=== PATIENT | female | born 1965 | race Caucasian/White ===

== ENCOUNTER → 2017-02-02 | Outpatient (CLI) | payer BC, OTHER ==
[~2017-02-02] MED LIST: ACET50TA PO; AMAN10CA PO; SERT50TA PO; TRAM150C5 PO; TRAM50TA2 PO
[2017-02-02 10:32] LABS: FREE T4 1.12 NG/DL (0.76-1.46)
[2017-02-02 10:40] LABS: CORTISOL AM 7.6 UG/DL (4.3-22.4); LUTEINIZING HORMONE 14.2 mIU/mL; PROLACTIN 5.7 NG/ML
[2017-02-02 10:41] LABS: FOLLICLE STIMULATING HORMONE 38.3 mIU/mL
== END ==
LOC: M WUC 08:36
DX: S06.2X9S Diffuse traumatic brain injury with loss of consciousness of unspecified duration, sequela (principal); X58.XXXS Exposure to other specified factors, sequela; Y92.89 Other specified places as the place of occurrence of the external cause; Y93.89 Activity, other specified; Y99.8 Other external cause status

== ENCOUNTER 2018-05-02 10:58 | Outpatient (RCR) | payer MEDICARE, OTHER | END 2018-05-26 | LOC: M ST 10:58 | DX: Z51.89 Encounter for other specified aftercare (principal); R26.9 Unspecified abnormalities of gait and mobility; R41.89 Other symptoms and signs involving cognitive functions and awareness | CPT/HCPCS: 97110 ==

== ENCOUNTER 2019-12-02 12:44 | Emergency (ER) | payer MEDICARE, OTHER ==
[~2019-12-02] VITALS: Ht 157.5 cm; Wt 93.6 kg
[~2019-12-02 12:44] MED LIST changes: -ACET50TA PO; +AMAN100C20 PO; -AMAN10CA PO; +MAPA500T2 PO; +SERT-141 PO; -SERT50TA PO
[2019-12-02] MEDS ORDERED: NS 1,000 ML IV ONE (13:30)
--- NOTE | 2019-12-02 14:01 | REP ---
Portable chest x-ray: Single view. History: Altered mental status. No comparison chest x-ray. Findings: The lungs are well inflated and clear. The pleural angles are sharp. Heart size is normal. EKG electrodes are seen. Pulmonary vasculature is not increased. No significant bony abnormality is appreciated. Impression: No active disease. Electronically Signed by Medhat Smalls MD 12/02/2019 01:52 P
--- NOTE | 2019-12-02 14:13 | REP ---
CT BRAIN WITHOUT CONTRAST: HISTORY: Headache. No comparison study. CT FINDINGS: Digital preliminary store sales leader radiograph is unremarkable. The bony calvarium is intact. Lateral, third, and fourth ventricles are normal in position and configuration. There is minimal generalized atrophic change. There is no evidence of intracranial hemorrhage. No mass, infarct, extra-axial fluid collection, or midline shift is seen. No intraorbital abnormality is seen. The visualized paranasal sinuses are clear. IMPRESSION: No acute intracranial abnormality. Electronically Signed by Medhat Smalls MD 12/02/2019 02:56 P
[2019-12-02 14:52] LABS: BASO # 0.1 10^3/uL (0.0-0.2); EOS # 0.1 10^3/uL (0.0-0.5); EOS % 1.2 % (0.0-3.0); HEMATOCRIT 40.4 % (36.0-47.0); HEMOGLOBIN 13.3 g/dl (12.0-15.5); LYMPH # 1.8 10^3/uL (1.5-5.0); LYMPH % 25.7 % (24.0-44.0); MEAN CORPUSCULAR HEMOGLOBIN 31.2 pg (27.0-33.0); MEAN CORPUSCULAR HGB CONC 32.9 g/dl (32.0-36.5); MEAN CORPUSCULAR VOLUME 94.8 fl (80.0-96.0); MONO # 0.5 10^3/uL (0.0-0.8); MONO % 7.7 % (0.0-5.0); NEUTROPHILS # 4.4 10^3/uL (1.5-8.5); NEUTROPHILS % 64.1 % (36.0-66.0); PLATELET COUNT, AUTOMATED 220 10^3/uL (150-450); RED BLOOD COUNT 4.26 10^6/uL (4.00-5.40); WHITE BLOOD COUNT 6.9 10^3/uL (4.0-10.0)
[2019-12-02] MEDS ORDERED: KETOROLAC 30 MG/ML VIAL (J1885) IV ONE (15:00)
[2019-12-02] MEDS ORDERED: METOCLOPRAMIDE INJ 10MG/2ML VIAL (J2765) IV ONE (15:00)
[2019-12-02 15:29] LABS: ALBUMIN 3.6 GM/DL (3.2-5.2); ALT/SGPT 13 U/L (12-78); BILIRUBIN,DIRECT < 0.1 MG/DL (0.0-0.2); BILIRUBIN,TOTAL 0.2 MG/DL (0.2-1.0); BLOOD UREA NITROGEN 18 MG/DL (7-18); CALCIUM LEVEL 9.2 MG/DL (8.5-10.1); CARBON DIOXIDE LEVEL 28 MEQ/L (21-32); CHLORIDE LEVEL 107 MEQ/L (98-107); CK-MB VALUE MASS 2.8 NG/ML (<3.6); CPK CREATINE PHOSPHOKINASE 112 U/L (26-192); CREATININE FOR GFR 0.67 MG/DL (0.55-1.30); GLOMERULAR FILTRATION RATE > 60.0 (>51); GLUCOSE, FASTING 85 MG/DL (70-100); POTASSIUM SERUM 4.3 MEQ/L (3.5-5.1); SODIUM LEVEL 141 MEQ/L (136-145); THYROID STIMULATING HORMONE 0.631 uIU/ML (0.358-3.740); TOTAL PROTEIN 7.1 GM/DL (6.4-8.2); TROPONIN I < 0.02 NG/ML (< 0.10)
[2019-12-02 16:15] VITALS: BP 140/71
== END 2019-12-02 16:30 | disposition home or self-care (01) ==
LOC: M ED 12:44
DX: G44.209 Tension-type headache, unspecified, not intractable (principal); Z87.820 Personal history of traumatic brain injury; F17.210 Nicotine dependence, cigarettes, uncomplicated; Z79.899 Other long term (current) drug therapy; Z79.891 Long term (current) use of opiate analgesic
CPT/HCPCS: 36415; 70450; 71045; 80048; 80076; 81001; 82550; 82553; 84443; 84484; 85025; 87086; 96361; 96374; 96375; 99284; J1885; J2765

== ENCOUNTER → 2022-01-10 | Outpatient (CLI) | payer MEDICARE, OTHER ==
[2022-01-10 10:13] LABS: HEMOGLOBIN 14.5 g/dl (12.0-15.5); MEAN CORPUSCULAR HEMOGLOBIN 30.7 pg (27.0-33.0); MEAN CORPUSCULAR HGB CONC 32.2 g/dl (32.0-36.5); MEAN CORPUSCULAR VOLUME 95.1 fl (80.0-96.0); PLATELET COUNT, AUTOMATED 237 10^3/uL (150-450); RED BLOOD COUNT 4.73 10^6/uL (4.00-5.40); WHITE BLOOD COUNT 5.9 10^3/uL (4.0-10.0)
[2022-01-10 10:44] LABS: ALBUMIN 3.7 GM/DL (3.2-5.2); ALT/SGPT 16 U/L (12-78); BILIRUBIN,TOTAL 0.2 MG/DL (0.2-1.0); BLOOD UREA NITROGEN 18 MG/DL (7-18); CALCIUM LEVEL 9.5 MG/DL (8.5-10.1); CARBON DIOXIDE LEVEL 27 MEQ/L (21-32); CHLORIDE LEVEL 107 MEQ/L (98-107); CREATININE FOR GFR 0.66 MG/DL (0.55-1.30); GLOMERULAR FILTRATION RATE > 60.0 (>51); GLUCOSE, FASTING 85 MG/DL (70-100); POTASSIUM SERUM 4.4 MEQ/L (3.5-5.1); SODIUM LEVEL 138 MEQ/L (136-145); TOTAL PROTEIN 8.1 GM/DL (6.4-8.2)
== END ==
LOC: M LAB 09:38
PROVIDERS: ATTEND Physical Medicine & Rehabilitation
DX: R41.89 Other symptoms and signs involving cognitive functions and awareness (principal); R46.89 Other symptoms and signs involving appearance and behavior

== ENCOUNTER → 2022-12-22 | Outpatient (CLI) | payer MEDICARE, OTHER | LOC: M RAD 06:54 | PROVIDERS: ATTEND Family Medicine | DX: F17.210 Nicotine dependence, cigarettes, uncomplicated (principal) ==

== ENCOUNTER → 2023-12-25 | Outpatient (CLI) | payer MEDICARE, OTHER | LOC: M RAD 08:17 | PROVIDERS: ATTEND Family Medicine | DX: Z12.2 Encounter for screening for malignant neoplasm of respiratory organs (principal); F17.210 Nicotine dependence, cigarettes, uncomplicated ==

== ENCOUNTER 2024-05-04 09:41 | Emergency (ER) | payer MEDICARE, OTHER ==
[~2024-05-04] VITALS: Ht 177.8 cm; Wt 98.5 kg
[2024-05-04 09:42] VITALS: BP 109/77; TEMP 97.4; O2SAT 96
[2024-05-04] MEDS ORDERED: PAME25CA PO (09:50)
[2024-05-04] MEDS ORDERED: [UNRECOGNIZED DRUG - CODE] PO (09:50)
== END 2024-05-04 12:05 | disposition home or self-care (01) ==
LOC: M ED 09:41
DX: I73.1 Thromboangiitis obliterans [Buerger's disease] (principal); F17.210 Nicotine dependence, cigarettes, uncomplicated; Z79.1 Long term (current) use of non-steroidal anti-inflammatories (NSAID); Z79.899 Other long term (current) drug therapy

== ENCOUNTER → 2024-09-17 | Outpatient (CLI) | payer MEDICARE, OTHER ==
[~2024-09-17] MED LIST changes: +ISOVUE-370 76% 100ML VIAL As Ordered ONE; +PAME25CA PO; +[UNRECOGNIZED DRUG - CODE] PO
== END ==
LOC: M RAD 10:36
PROVIDERS: ATTEND Surgery Vascular Surgery
DX: I77.1 Stricture of artery (principal)
CPT/HCPCS: 71275; Q9967

== ENCOUNTER → 2024-10-28 | Outpatient (CLI) | payer MEDICARE, OTHER ==
[~2024-10-28] MED LIST changes: -ISOVUE-370 76% 100ML VIAL As Ordered ONE
[2024-10-28 14:29] LABS: BLOOD UREA NITROGEN 19 MG/DL (9-23); CALCIUM LEVEL 9.9 MG/DL (8.3-10.6); CARBON DIOXIDE LEVEL 30 MMOL/L (20-31); CHLORIDE LEVEL 104 MMOL/L (98-107); CREATININE FOR GFR 0.74 MG/DL (0.55-1.30); GLOMERULAR FILTRATION RATE > 60.0 (>45); GLUCOSE, FASTING 94 MG/DL (74-106); SODIUM LEVEL 140 MMOL/L (136-145)
[2024-10-28 14:32] LABS: INR 0.92; PARTIAL THROMBOPLASTIN TIME 26.4 SECONDS (24.8-34.2); PROTHROMBIN TIME 12.6 SECONDS (12.5-14.5)
== END ==
LOC: M LAB 13:31
PROVIDERS: ATTEND Physician Assistant
DX: D69.8 Other specified hemorrhagic conditions (principal)